=== PATIENT | male | born 1970 | race Caucasian/White ===

== ENCOUNTER 2016-12-09 12:58 | Emergency (ER) | payer BC ==
[~2016-12-09] VITALS: Ht 172.7 cm; Wt 86.4 kg
[2016-12-09 12:58] VITALS: BP 126/74
[2016-12-09] MEDS ORDERED: AMOX (13:13)
[2016-12-09] MEDS ORDERED: COMBAER6 (13:13)
[2016-12-09] MEDS ORDERED: ALBU17IN (13:13)
== END 2016-12-09 16:25 | disposition left against medical advice (07) ==
LOC: M ED 12:58
DX: Z53.21 Procedure and treatment not carried out due to patient leaving prior to being seen by health care provider (principal)